=== PATIENT | male | born 1985 | race African-American/Black ===

== ENCOUNTER 2018-06-04 21:27 | Emergency (ER) | payer SELFPAY ==
[~2018-06-04] VITALS: Ht 198.1 cm; Wt 120.5 kg
[2018-06-04] MEDS ORDERED: ALBU8HFA IH (22:05)
[2018-06-04 23:54] VITALS: BP 118/76
== END 2018-06-05 00:17 | disposition home or self-care (01) ==
LOC: EMS 21:27
DX: R60.0 Localized edema (principal); I50.9 Heart failure, unspecified; F17.210 Nicotine dependence, cigarettes, uncomplicated; F12.90 Cannabis use, unspecified, uncomplicated; Z88.0 Allergy status to penicillin